=== PATIENT | male | born 1995 | race Two or more races ===

== ENCOUNTER 2020-10-01 07:06 | Emergency (ER) | payer SELFPAY ==
[~2020-10-01] VITALS: Ht 167.6 cm; Wt 81.6 kg
--- NOTE | 2020-10-01 07:15 | NUR ---
[id number] C/O ALCOHOL INTOXICATION. PATIENT A/OX3, IN BED, RESTING, DENIES ANY COMPLAINS. NEEDS ATTENDED.
--- NOTE | 2020-10-01 09:44 | NUR ---
Patient given written and verbal discharge instructions. Patient verbalizes understanding of instructions. Patient is ambulatory with steady gait. Refuses offer of [facility] placement. Patient given list of available shelters in surrounding area.
[2020-10-01 09:45] VITALS: BP 143/59
== END 2020-10-01 09:46 | disposition home or self-care (01) ==
LOC: ER 07:11
DX: F19.10 Other psychoactive substance abuse, uncomplicated (principal); F10.10 Alcohol abuse, uncomplicated; Y90.0 Blood alcohol level of less than 20 mg/100 ml
CPT/HCPCS: 36415; G0480